=== PATIENT | male | born 1960 | race Caucasian/White ===

== ENCOUNTER 2024-04-10 08:31 | Emergency (ER) | payer BC, SELFPAY ==
--- NOTE | ~2024-04-10 | XR_ITS ---
XR elbow LT min 3V Ordering provider: ANABELLE Sutherland History: . general pain xmonths starts @ elbow radiates down to wrist . Comparison: None. FINDINGS: BONES: No acute fracture or dislocation. JOINT SPACES: Normal. SOFT TISSUES: Normal. No definite joint effusion. Ossification of the insertion of the triceps tendon. IMPRESSION: No acute osseous abnormality left elbow. Reviewed, dictated and finalized at location A.
[2024-04-10 08:49] VITALS: BP 132/79; PULSE 90; RESP 16; TEMP 36.7; O2SAT 96
--- NOTE | 2024-04-10 08:56 | ED.EXTPRO ---
HPI - Extremity Problem General Chief complaint: Extremity Problem,Nontraumatic Stated complaint: Left Arm/Elbow Pain Time Seen by Provider: 04/10/24 08:47 Source: patient and RN notes reviewed Mode of arrival: ambulatory Limitations: no limitations History of Present Illness HPI Narrative: Patient presents today complaining of generalized left elbow pain for the last several months. Denies any specific injury or trauma. Pain increases with flexion and extension, pronation supination of the elbow. Patient has been seen by his PCP for same complaint, and sent to a neurologist for any EMG to rule out carpal tunnel another nerve issues. The EMG was negative. He has followed up with anyone after seeing Neurology. Denies numbness or tingling in the arm or hand. Currently rates his pain 10. He has not tried any [id number] medication for his symptoms prior to arrival. Patient is in the area from out of town. Related Data Home Medications Medication Instructions Recorded Confirmed aspirin 81 mg tablet,delayed 81 mg PO BID 04/10/24 04/10/24 release cholecalciferol (vitamin D3) 50 50 mcg PO DAILY 04/10/24 04/10/24 mcg (2,000 unit) tablet (Vitamin D3) ezetimibe 10 mg-simvastatin 40 mg 1 tablet PO DAILY 04/10/24 04/10/24 tablet hydrochlorothiazide 12.5 mg tablet 12.5 mg PO DAILY 04/10/24 04/10/24 losartan 100 mg tablet 100 mg PO DAILY 04/10/24 04/10/24 metformin 500 mg tablet 500 mg PO BID 04/10/24 04/10/24 metoprolol succinate 25 mg 12.5 mg PO DAILY 04/10/24 04/10/24 tablet,extended release 24 hr testosterone enanthate 75 mg/0.5 75 mg subcut WEEKLY 04/10/24 04/10/24 mL subcutaneous auto-injector (Xyosted) tirzepatide 10 mg/0.5 mL 0.5 mg subcut WEEKLY 04/10/24 04/10/24 subcutaneous pen injector (Mounradharo) vitamin B complex 1 tablet PO DAILY 04/10/24 04/10/24 Allergies Allergy/AdvReac Type Severity Reaction Status Date / Time No Known Allergies Allergy Verified 04/10/24 08:51 Review of Systems Review of Systems: CONSTITUTIONAL: Denies body aches, fever, chills, or sweats. EYES: Denies visual changes, redness, or discharge. ENT: Denies rhinorrhea, congestion, sore throat, or otalgia. CARDIOVASCULAR: Denies chest pain, palpitations, or edema. RESPIRATORY: Denies cough or dyspnea. GASTROINTESTINAL: Denies abdominal pain, nausea, vomiting, or diarrhea. GENITOURINARY: Denies dysuria or hematuria. SKIN: Denies rash, itching, or wounds. MUSCULOSKELETAL: Left elbow pain NEUROLOGIC: Denies headache, numbness, tingling, or weakness. PSYCH: Denies depression or anxiety. [facility] Past Medical History Medical History (Updated 04/10/24 @ 09:21 by Sun Suero, BLENDER, ) Diabetes Hypertension Comments At time of signature, I have reviewed and agree with nursing past medical, surgical, social and family history unless otherwise noted. Please see nursing chart for further information. There is no relevant family history pertinent to the presenting complaint Exam Narrative: GENERAL: Well-appearing, well-nourished, and in no acute distress. HEAD: Normocephalic, atraumatic. EYES: EOMI. No redness or drainage. Conjunctivae normal. ENT: Mucous membranes pink and moist. NECK: Normal AROM. CHEST: No respiratory distress. EXTREMITIES: Left elbow: Patient localizes his pain generally about the elbow, as well as proximally and distally to the elbow. No edema, ecchymosis, erythema. The elbow is nontender to palpation. Range of motion in any direction exacerbates the pain. Distal sensation intact. Capillary refill normal. Radial pulse normal. SKIN: Warm, dry, no rash. Capillary refill normal. Normal skin turgor. NEURO: No focal deficits. Alert and oriented x3. Gait steady. PSYCH: Normal affect. No signs of depression or anxiety. Course Course Emergency Course: Patient has never had x-ray imaging done and is amenable to this. Level of Care: Express Care Visit Vital Signs
== END 2024-04-10 09:26 | disposition home or self-care (01) ==
PROVIDERS: Emergency Provider Nurse Practitioner
DX: M25.522 Pain in left elbow (principal); E11.9 Type 2 diabetes mellitus without complications; Z79.84 Long term (current) use of oral hypoglycemic drugs; I10 Essential (primary) hypertension; Z79.82 Long term (current) use of aspirin
CPT/HCPCS: 73080; 99213; G0463